=== PATIENT | female | born 1990 | race Two or more races ===

== ENCOUNTER 2016-10-22 11:20 | Emergency (ER) | payer MEDICAID ==
[~2016-10-22] VITALS: Ht 167.6 cm; Wt 56.7 kg
[2016-10-22] MEDS ORDERED: IBUPROFEN 400 MG TABLET ONE (12:21)
[2016-10-22] MEDS ORDERED: HYDROCODONE/APAP 5/325MG 1 EACH TABLET ONE (12:25)
[2016-10-22] MEDS ORDERED: IBUPROFEN 400 MG TABLET PO ONE (12:30)
[2016-10-22] MEDS ORDERED: HYDROCODONE/APAP 5/325MG 1 EACH TABLET PO ONE (12:30)
[2016-10-22 12:31] VITALS: BP 118/76
== END 2016-10-22 12:39 | disposition home or self-care (01) ==
LOC: ER 11:22
DX: S93.401A Sprain of unspecified ligament of right ankle, initial encounter (principal); X58.XXXA Exposure to other specified factors, initial encounter; Y92.89 Other specified places as the place of occurrence of the external cause; Y93.89 Activity, other specified; Y99.8 Other external cause status
CPT/HCPCS: 73610-TC; 73630-TC; A4606; Z7610

== ENCOUNTER 2017-12-05 21:27 | Emergency (ER) | payer MEDICAID ==
[~2017-12-05] VITALS: Ht 167.6 cm; Wt 59.0 kg
[2017-12-05 21:27] VITALS: BP 119/87
[2017-12-05] MEDS ORDERED: PSEUDOEPHEDRINE HCL 30 MG TABLET ONE (22:23)
[2017-12-05] MEDS ORDERED: ONDANSETRON 4 MG TAB.RAPDIS ONE (22:23)
[2017-12-05] MEDS ORDERED: HYDROCODONE/APAP 5/325MG 1 EACH TABLET ONE (22:23)
[2017-12-05] MEDS ORDERED: PSEUDOEPHEDRINE HCL 30 MG TABLET PO ONE (22:30)
[2017-12-05] MEDS ORDERED: ONDANSETRON 4 MG TAB.RAPDIS SL ONE (22:30)
[2017-12-05] MEDS ORDERED: HYDROCODONE/APAP 5/325MG 1 EACH TABLET PO ONE (22:30)
== END 2017-12-05 22:35 | disposition home or self-care (01) ==
LOC: ER 21:33
DX: H65.91 Unspecified nonsuppurative otitis media, right ear (principal)
CPT/HCPCS: 99284; A4606; Q0162; Z7610

== ENCOUNTER 2018-01-16 12:10 | Emergency (ER) | payer MEDICAID ==
[~2018-01-16] VITALS: Ht 167.6 cm; Wt 59.0 kg
[2018-01-16 12:13] VITALS: BP 100/79
== END 2018-01-16 13:01 | disposition home or self-care (01) ==
LOC: ER 12:13
DX: Z76.0 Encounter for issue of repeat prescription (principal)
CPT/HCPCS: 84703-TC; A4606; Z7610